=== PATIENT | male | born 1990 | race Caucasian/White ===

== ENCOUNTER 2017-10-21 15:35 | Emergency (ER) | payer SELFPAY ==
--- NOTE | 2017-10-21 15:44 | ER Report ---
History and Physical Time Seen By MD: 15:39 (REGINA LESTER DO) HPI/ROS CHIEF COMPLAINT: r knee pain HISTORY OF PRESENT ILLNESS: PT was wrestling and his lower leg got caught and his knee twisted. [place] a pop and immediate pain in medial aspect of knee. Pt unable to put weight on the leg. Pt does states he has some tingling in his big toe on effected side. Pt is able to lift his leg off stretcher and wiggle all toes. Pt denies hip pain. no prior knee pain. REVIEW OF SYSTEMS: Musculoskeletal: No back pain, + right knee pain Neuro: + tingling to right great toe, no weakness (REGINA LESTER DO) Allergies: Coded Allergies: No Known Drug Allergies (Unverified , 10/21/17) Home Meds No Active Prescriptions or Reported Meds Past Medical/Surgical History Pmhx: neg Pshx: neg (REGINA LESTER DO) Reviewed Nurses Notes: Yes Old Medical Records Reviewed: Yes (REGINA LESTER DO) Hx Smoking: No Hx Alcohol Use: No (REGINA LESTER DO) Constitutional Vital Sign - Last 24 Hours 10/21/17 10/21/17 15:40 19:19 Temp 97.9 Pulse 56 64 Resp 14 12 B/P (MAP) 94/56 134/98 (110) Pulse Ox 94 95 O2 Delivery Room Air Room Air (ANDREA GREENE ) Physical Exam General appearance: [Alert no distress.] Right knee: There is no significant swelling. There is no effusion. There is no obvious deformity of the knee. There is moderate tenderness to the patella and medial aspect of joint line. The joint is stable with no comparable ligamentous laxity to the knee. However pt does have pain with Valgus on exam. There is no tenderness proximal or distal to the knee. PT is able to lift the leg off the stretcher. Neurologic exam: The patient has normal sensation distal to the injury. Vascular exam: Normal pulses and capillary refill in the foot DIFFERENTIAL DIAGNOSIS: After history and physical exam differential diagnosis was considered for knee injury including sprain, fracture, meniscus injury and soft tissue injury. (REGINA LESTER DO) Medical Decision Making ED Course/Re-evaluation ED Course Will start with xray. Suspect pt will require MRI. 10/21/2017 4:42:17 pm Pt Xray is stable. It is active and is unable to weight bare on right leg. will obtain MRI 10/21/2017 5:26:00 pm PT off to MRI. Signed out to Dr. Greene pending MRI results. Decision to Disposition Date: Oct 21, 2017 (REGINA LESTER DO) ED Course 10/21/2017 6:46:11 pm preliminary MRI report from an echo. Radiology no significant traumatic injury noted. Review by the cardiology clinical nurse specialist in the morning will be performed. A formal report will be placed at that time. Patient will be equipped with a knee immobilizer and crutches. He was offered medicine for pain, but he thinks ibuprofen will be enough pain relief for him. Patient was placed on physical restrictions. Decision to Disposition Date: Oct 21, 2017 Decision to Disposition Time: 18:50 (ANDREA GREENE DO) Depart Departure Latest Vital Signs Vital Signs Date Time Temp Pulse Resp B/P (MAP) Pulse Ox O2 Delivery O2 Flow Rate FiO2 10/21/17 19:19 64 12 134/98 (110) 95 Room Air 10/21/17 15:40 97.9 (ANDREA GREENE DO) Impression: Primary Impression: Knee injury Condition: Improved Disposition: HOME OR SELF-CARE New Scripts No Active Prescriptions or Reported Meds Patient Instructions: Knee Sprain (ED) Additional Instructions: Take ibuprofen 200 mg 3-4 tablets 3 times a day with food Apply ice to the affected knee. 30-60 minutes 3-4 times per day Wear knee immobilizer for one week Physical activity is to be restricted to bed rest and sitting Patient follow-up with orthopedics at the [facility] in one week for reevaluation Problem Qualifiers Primary Impression: Knee injury Encounter type: initial encounter Laterality: right Qualified Codes: S89.91XA - Unspecified injury of right lower leg, initial encounter REGINA LESTER DO Oct 21, 2017 15:43 ANDREA GREENE DO Oct 21, 2017 18:54
--- NOTE | 2017-10-21 16:37 | RADIOLOGY IMAGING REPORT ---
FACILITY: [facility] PATIENT NAME: Richmond Wilson : 1990 MR: [id number] V: [id number] EXAM DATE: ORDERING PHYSICIAN: REGINA LESTER TECHNOLOGIST: Location: [facility] [place] Patient: Richmond Wilson : 1990 Visit/Account:[id number] Date of Sevice: 10/21/2017 EXAMINATION: Right knee radiographs 4 views HISTORY: Twisted pain, pain medial joint line. COMPARISON: None. FINDINGS: AP, lateral, oblique and patellar sunrise views of the right knee are obtained. Bones: No acute fracture or dislocation. Joint spaces: Negative. Hardware: None. Alignment: Normal. Soft tissues: Negative. Effusion: None. IMPRESSION: No acute right knee fracture. Report Dictated By: Lizbeth Myers MD at 10/21/2017 4:30 PM Report E-Signed By: Lizbeth Myers MD at 10/21/2017 4:34 PM WSN:[id number]
--- NOTE | 2017-10-21 17:50 | RADIOLOGY IMAGING REPORT ---
FACILITY: [facility] PATIENT NAME: Richmond Wilson : 1990 MR: [id number] V: [id number] EXAM DATE: ORDERING PHYSICIAN: REGINA LESTER [place]CHNOLOG[place]: [place] [facility] [place] [place] : 1990 Visit/Account:[id number] Date of Sevice: 10/21/2017 ORBITS FOREIGN BODY 1 VIEW HISTORY: Pre-MRI screening. COMPARISON: None. FINDINGS: AP view orbits obtained. No metallic foreign body projecting at region of orbits. IMPRESSION: Negative pre-MRI screening of orbits. Report Dictated By: Fausto Cerrato MD at 10/21/2017 5:46 PM Report E-Signed By: Fausto Cerrato MD at 10/21/2017 5:46 PM WSN:[id number]
[2017-10-21 19:19] VITALS: BP 134/98
--- NOTE | 2017-10-23 08:31 | RADIOLOGY IMAGING REPORT ---
[place] [facility] [place]IENT NAME: Richmond Wilson : 1990 MR: [id number] V: [id number] EXAM DATE: ORDERING PHYSICIAN: REGINA LESTER TECHNOLOGIST: Location: [facility] Patient: Richmond Wilson : 1990 Visit/Account:[id number] Date of Sevice: 10/21/2017 ADDENDUM #1 In the absence of a musculoskeletal radiologist, a preliminary report of no gross abnormality was pro vided by my colleague on the evening of October 21, 2017. I discussed the abnormalities of the MCL, me dial retinaculum, and the medial tibial plateau fracture with Nikki Navarro RN on 10/23/2017 at 0 836 hours. Since the time of the initial MRI the patient was sent home with a brace and has already b een scheduled for orthopedics follow-up. Report Dictated By: José Antonio Nunes at 10/23/2017 8:51 AM Report E-Signed By: José Antonio Nunes at 10/23/2017 8:53 AM ORIGINAL REPORT KNEE RIGHT W/O CONTRAST COMPARISON: None. HISTORY: unable to walk; heard pop in the right knee, medial knee pain with weightbearing. TECHNIQUE: Noncontrast multiplanar MRI of the right knee utilizing T1 weighted and fluid sensitive s equences. CONTRAST: None. FINDINGS: FLUID: There is no effusion or [place]'s cyst. MENISCI: The menisci are intact. Please note that apparent horizontal intermediate signal in the me dial meniscus at the junction of the body and posterior horn seen on a single image, series 5 image 1 7, is not confirmed in the sagittal plane and this is most consistent with artifact due to blade (mot ion minimizing) technique utilized on series 5. TENDONS/LIGAMENTS: The anterior and posterior cruciate ligaments, lateral collateral ligamentous com plex and extensor mechanism are intact. The biceps and popliteus tendons are intact. There is mild e kendall-like signal adjacent to the otherwise intact medial collateral ligament consistent with an acute grade 1 sprain. There is abnormal intermediate signal, thickening and irregularity of the medial ret inaculum just anterior to the medial collateral ligament which is consistent with a partial-thickness (grade 2) tear. MUSCLES: There is no muscle atrophy or edema. CARTILAGE: No significant cartilage defects in the knee. BONES: Mild focal bone marrow edema in the posterior aspect of the medial tibial metaphysis, adjacen t to a subtle impaction fracture of the most posterior margin of the medial tibial metaphysis/plateau , with about 2 mm depression perhaps best seen series 4 image 16. Otherwise normal marrow signal and alignment. OTHER: Negative. IMPRESSION: 1. Acute impaction fracture of the posterior margin of the medial tibial plateau, with about 2 mm of depression and mild adjacent bone marrow edema. 2. Acute grade 1 MCL sprain. Acute grade 2 tear of the medial retinaculum just anterior to the MCL. Report Dictated By: José Antonio Nunes at 10/23/2017 8:16 AM Report E-Signed By: José Antonio Nunes at 10/23/2017 8:26 AM WSN:[id number]
== END 2017-10-21 19:10 | disposition home or self-care (01) ==
LOC: ER 16:26
DX: S89.91XA Unspecified injury of right lower leg, initial encounter (principal); X58.XXXA Exposure to other specified factors, initial encounter
CPT/HCPCS: 70030; 73564; 73721; 99283; L1830